=== PATIENT | female | born 2005 | race Caucasian/White ===

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

== ENCOUNTER 2024-11-27 21:50 | Emergency (ER) | payer BC, SELFPAY ==
[2024-11-27 21:52] VITALS: BP 128/94; PULSE 117; RESP 18; TEMP 36.3; O2SAT 100; BMI 23.4
[2024-11-27] MEDS: Ketorolac 30 MG/ML Syringe IV (22:22)
[2024-11-27] MEDS: 0.9% Normal Saline (1000mL) 1,000 ML 999 ML IV (22:22)
[2024-11-27 22:23] LABS: Absolute Lymphocyte Count 3.73 X10^3/uL (0.83-4.51); Absolute Neutrophil Count 5.1 X10^3/uL (2.0-7.7); Basophil# 0.09 X10^3/uL; Basophil% 0.9 % (0-1); Eosinophil# 0.28 X10^3/uL; Eosinophils% 2.7 % (0-5); Hematocrit 39.7 % (37-47); Hemoglobin 13.5 g/dL (12.0-15.0); Lymphocyte # 3.73 X10^3/ul (0.83-4.51); Lymphocyte % 36.5 % (19-41); Mean Corpuscular Hgb 29.7 pg (27.0-32.0); Mean Corpuscular Volume 87.4 fL (81-99); Mean Platelet Vol. 8.6 fl (6.2-12.0); Monocyte# 0.97 X10^3/uL; Monocyte% 9.5 % (0-10); NRBC Flagged by Analyzer 0 % (0-5); Neutrophil # 5.12 X10^3/uL (2.7-7.7); Neutrophil % 50.2 % (47-70); Platelet Count 267 K/mm3 (150-450); RBC Distribution Width CV 11.9 % (11.6-14.6); RBC Distribution Width SD 38.3 fl (35.1-43.9); Red Blood Count 4.54 M/mm3 (4.2-5.4); White Blood Count 10.2 K/mm3 (4.4-11.0)
[2024-11-27 22:41] LABS: AST(SGOT) 19 U/L (<=31); Alanine Aminotransfer ALT/SGPT 8 U/L (<=34); Albumin, Serum 4.7 g/dL (3.5-5.0); Alkaline Phosphatase 70 U/L (35-104); Anion Gap 12 (5-15); BUN 14 mg/dL (4-19); BUN/Creat Ratio 17.9 RATIO (10-20); Bilirubin, Direct 0.18 mg/dL (0.00-0.30); Calcium,Total 9.8 mg/dL (7.6-11.0); Chloride 102 mmol/L (98-108); Creatinine, Serum 0.77 mg/dL (0.70-1.20); EST Glomerular Filtration Rate 113 (>60); Estimated Creatinine Clearance 104.87 ml/min (50-250); Globulin 2.8 g/dL (2.2-4.2); Glucose 90 mg/dL (70-99); Lipase 27 U/L (13-75); Potassium 3.8 mmol/L (3.3-5.1); Protein, Total 7.5 g/dL (5.9-8.4); Sodium Level 138 mmol/L (133-145); Total Bilirubin 0.38 mg/dL (0.00-1.30)
[2024-11-27 22:57] LABS: Internal QC Validated? YES +Cl - CLEAR BKGD; Pregnancy, Serum, hCG Quali. NEGATIVE Negative
--- NOTE | 2024-11-27 23:00 | RAD_ITS ---
PROCEDURE: ACUTE ABDOMEN INC CHEST 11/27/2024 REASON FOR EXAM: ABD PAIN TECHNIQUE: Single view abdomen. COMPARISON: None FINDINGS: Abdominal series shows no obstruction. No free air. No fluid levels. RAD/Acute Abdomen Inc Chest IMPRESSION: Nonobstructive bowel gas pattern. Reading Location: [id number]
--- NOTE | 2024-11-27 23:46 | EDS_ITS ---
HPI History of Present Illness Chief Complaint: Abd Pain Informant: patient and spouse/S.O. Narrative Narrative: Patient is a 19-year-old female with past medical history of IBS. She states she has had increased constipation over the last 3 days. She states this evening she had sexual intercourse with her boyfriend. Roughly 1 hour later she noticed generalized abdominal discomfort. She states that there was no sudden onset of pain during sexual intercourse that she has not had vaginal bleeding or discharge and she has low concern for . She also denies any recent sick symptoms such as fevers chills nausea or vomiting. She reports the pain comes in waves and as she is unsure what is causing it presents for evaluation [facility] Medical History no medical history Home Medications ?Medication ?Instructions ?Recorded ?Last Taken ?Type NK 06/29/18 Unknown History Allergy/AdvReac Type Severity Reaction Status Date / Time No Known Allergies Allergy Verified 04/22/23 00:19 Family History no significant family his Surgical History no surgical history Social History Smoking Status: Never smoker [facility] ED Constitutional Constitutional ED: Denies chills or fever(s) ENT ENT ED: Denies sore throat Cardiovascular Cardiovascular: Denies chest pain Respiratory/Chest Respiratory/Chest: Denies cough or dyspnea Gastrointestinal Gastrointestinal: Reports abdominal pain and constipation; Denies diarrhea, nausea or vomiting Genitourinary Genitourinary ED: Denies dysuria, hematuria or urinary frequency Musculoskeletal Musculoskeletal: Denies back pain Integumentary Denies rash Neurologic Neurologic: Denies headache(s) Hematologic/Lymphatic Hematologic/Lymphatic: Denies easy bleeding or easy bruising EXAM Physical Exam Const Vital Signs: 11/27/24 21:52 Temperature 97.4 F L Temperature Source Temporal Pulse Rate 117 H Respiratory Rate 18 Blood Pressure 128/94 H Blood Pressure Mean 105 Pulse Ox 100 Oxygen Delivery Method Room Air Positive well nourished and well developed General Appearance ED: well developed; Negative for pallor HEENT Reports moist mucous membranes HEENT Narrative: Normocephalic atraumatic No signs of infection noted in the posterior pharynx Eyes PERRL and EOMs intact bilaterally General Eye ED: Negative for scleral icterus Neck supple Neck Narrative: No nuchal rigidity or meningeal signs Resp normal respiratory effort and clear to auscultation bilaterally Cardio regular rate and regular rhythm Rate: other Other Details: Heart is regular rate and rhythm without murmurs rubs or gallop Radial and carotid pulses are equal and symmetric GI non-distended and no masses GI Narrative: Abdomen is soft and nondistended with hypoactive bowel sounds There is mild diffuse pain with palpation without voluntary guarding or rigidity No rigidity or peritoneal signs No pulsatile mass Auscultation: hypoactive bowel sounds Palpation: soft Narrative: Patient deferred Extremity normal to inspection Neuro oriented x3, CN's II-XII intact bilaterally and no sensory deficits noted Sensorium / Orientation: alert Motor Exam: strength 5/5 throughout Psych mental status grossly normal Skin no rashes or lesions noted General Skin Exam: Negative for jaundice or pallor MDM MDM MDM Narrative Medical decision making narrative: Patient arrived to the ER tachycardic but otherwise with stable vitals. She reported development of generalized abdominal discomfort that comes in waves roughly 1 hour after sexual activity. We discussed that there is concern for vaginal trauma as the cause of her pain but she states that there was no sudden onset of pain and there has been no bleeding or discharge so concern for vaginal laceration cervical laceration vaginal hematoma or perforation is low. No generalized abdominal discomfort there is concern for constipation versus colitis or diverticulitis versus biliary colic versus acute pancreatitis. Basic blood work was obtained which revealed no clinically significant findings. As the patient is afebrile does not have a white count or left shift I have low concern for infectious process. With normal lipase and liver enzymes have low concern for pancreatitis or biliary issue. Patient's test is negative as well going against a complication. An acute abdominal x-ray revealed changes most consistent with constipation as there is no free air or obstructive process I have low concern for internal trauma. On reevaluation after IV fluids and Toradol patient does report feeling better. At this time workup is negative and symptoms are most consistent with IBS/constipation. She has low concern for vaginal trauma and does not want a pelvic exam. Therefore she was advised on treating her constipation with MiraLAX and Colace and staying hydrated but as history and exam does not indicate an obstructive or infective process or perforation she is otherwise safe for discharge. History & Record Review Discussion w/independent historian: Patient and Significant other Lab Data Attestation: I reviewed the patient's lab results. Labs: Laboratory Results - last 24 hr 11/27/24 11/27/24 22:04 22:23 WBC 10.2 RBC 4.54 Hgb 13.5 Hct 39.7 MCV 87.4 MCH 29.7 MCHC 34.0 RDW Std Deviation 38.3 RDW Coeff of Rajan 11.9 Plt Count 267 MPV 8.6 Immature Gran % (Auto) 0.200 Neut % (Auto) 50.2 Lymph % (Auto) 36.5 [place] % (Auto) 9.5 Eos % (Auto) 2.7 Baso % (Auto) 0.9 Absolute Neuts (auto) 5.1 Absolute Lymphs (auto) 3.73 Nucleated RBC % 0 Sodium 138 Potassium 3.8 Chloride 102 Carbon Dioxide 24.0 Anion Gap 12 BUN 14 Creatinine 0.77 Estim Creat Clear Calc 104.87 Est GFR (MDRD) Non-Af 113 BUN/Creatinine Ratio 17.9 Glucose 90 Calcium 9.8 Total Bilirubin 0.38 Direct Bilirubin 0.18 AST 19 ALT 8 Alkaline Phosphatase 70 Total Protein 7.5 Albumin 4.7 Globulin 2.8 Lipase 27 Serum , Qual NEGATIVE Radiography Diagnostic Testing: Clinical Impression(s) from Imaging Studies Acute Abdomen Series 11/27/24 23:00 IMPRESSION: Nonobstructive bowel gas pattern. Reading Location: [facility] Acute abdominal series with 1 view chest as interpreted by the emergency medicine physician reveals a nonobstructive nonspecific bowel gas pattern with constipation changes. 1 view chest x-ray reveals no acute infiltrate Discharge Plan Triage Chief Complaint: Abd Pain ED Provider: Jim Cuevas Dx/Rx/DC Orders Clinical Impression: Nonspecific abdominal pain, IBS (irritable bowel syndrome), Constipation Instructions: Abdominal Pain, ED Constipation (Adult) Prescriptions: No Action NK Primary Care Provider: Scott Myles Referrals: Scott Myles MD [Primary Care Provider] - Activity Restrictions/Additional Instructions: Your workup reveals no lab abnormality and the x-ray shows signs consistent with constipation and retained stool. Take MiraLAX twice a day and add Colace to help stimulate bowel movement. Keep yourself well-hydrated. If you develop a fever or have any further concerns please return to the ER for repeat evaluation Print Language: [place] Disposition Disposition: Home, Self Care
[2024-11-28 00:20] VITALS: BP 125/72; PULSE 84; RESP 15; TEMP 36.7; O2SAT 99
== END 2024-11-28 00:10 | disposition home or self-care (01) ==
PROVIDERS: Emergency Provider Emergency Medicine; PCP Pediatrics; Visit Provider Emergency Medicine
DX: R10.9 Unspecified abdominal pain (principal); K58.9 Irritable bowel syndrome, unspecified; K59.00 Constipation, unspecified
CPT/HCPCS: 74022; 80048; 80076; 83690; 84703; 85025; 96361; 96374; 99283